=== PATIENT | male | born 1990 | race Caucasian/White ===

== ENCOUNTER 2016-11-13 14:48 | Outpatient (CLI) | payer BC ==
--- NOTE | 2016-11-13 15:20 | DIAGNOSTIC IMAGING REPORT ---
PROCEDURE: XR CHEST 2 VIEW INDICATION: HEMOPTSIS/ COUGH TECHNIQUE: PA and lateral views. COMPARISON: None. FINDINGS: Lungs are clear. Heart and mediastinum are normal. Thorax is normal. IMPRESSION: 1. Negative chest.
== END 2016-11-13 23:00 ==
LOC: XR SRH 14:48
DX: R04.2 Hemoptysis (principal); R05 Cough